=== PATIENT | male | born 1930 | race Caucasian/White ===

== ENCOUNTER 2017-01-07 13:18 | Emergency (ER) | payer MEDICARE, OTHER ==
[2017-01-07 15:00] LABS: BILIRUBIN NEGATIVE (NEGATIVE); BLOOD TRACE-INTACT Ery/uL (NEGATIVE); CLARITY CLEAR (CLEAR); COLOR YELLOW (YELLOW); GLUCOSE (U) NORMAL (NORMAL); KETONE (U) NEGATIVE (NEGATIVE); LEUKOCYTES NEGATIVE Leu/uL (NEGATIVE); NITRITE NEGATIVE (NEGATIVE); PROTEIN NEGATIVE (NEGATIVE); SPECIFIC GRAVITY 1.015 (1.001-1.030); UROBILINOGEN 0.2 mg/dL (0.2-1.0); pH 5.5 (5.0-9.0)
[2017-01-07 15:07] LABS: INR 1.16 (0.9-1.2); PROTHROMBIN TIME 14.4 SECONDS (11.7-14.0)
[2017-01-07 15:08] LABS: PTT 37.4 SECONDS (23.2-31.4)
[2017-01-07 15:13] LABS: ALBUMIN 3.8 g/dL (3.4-4.8); BILIRUBIN - TOTAL 0.7 mg/dL (0.1-1.0); GLOBULIN (CALCULATION) 2.1 g/dL (2.2-4.2); POTASSIUM 3.3 mmol/L (3.5-5.1); TOTAL PROTEIN 5.9 g/dL (6.4-8.3)
[2017-01-07 15:20] LABS: BASOPHIL 3.8 % (0-2); EOSINOPHIL 0.6 % (0-7); HCT 34.9 % (42.0-52.0); HGB 10.9 g/dl (13.2-18.0); LYMPHOCYTE 56.5 % (15-48); MCH 26.5 pg (25.0-31.0); MCHC 31.2 g/dL (32.0-36.0); MCV 84.9 fL (78.0-100.0); MONOCYTE 13.8 % (0-12); NEUTROPHIL 25.3 % (41-80); RBC 4.11 M/uL (4.70-6.00); RDW 16.7 % (11.5-14.0)
[2017-01-07 15:21] LABS: PLT 68 K/uL (150-400)
[2017-01-07 15:23] LABS: URINARY RBC RARE
== END 2017-01-07 18:02 | disposition home or self-care (01) ==
LOC: FER 13:18
PROVIDERS: Emergency Medicine
DX: S00.83XA Contusion of other part of head, initial encounter (principal); C85.90 Non-Hodgkin lymphoma, unspecified, unspecified site; N13.2 Hydronephrosis with renal and ureteral calculous obstruction; B02.9 Zoster without complications; R16.1 Splenomegaly, not elsewhere classified; I10 Essential (primary) hypertension; E78.5 Hyperlipidemia, unspecified; M06.9 Rheumatoid arthritis, unspecified; Z79.82 Long term (current) use of aspirin; Z79.899 Other long term (current) drug therapy; Z87.442 Personal history of urinary calculi; W19.XXXA Unspecified fall, initial encounter
CPT/HCPCS: 36415; 70450; 70486; 80053; 81001; 83690; 84484; 85025; 85610; 85730; 87088; 93005

== ENCOUNTER 2020-12-16 10:05 | Emergency (ER) | payer MEDICARE, OTHER ==
[~2020-12-16 10:05] MED LIST: ALLOPURINOL300 MG PO; ASCORBIC ACID500 MG PO; CEFDINIR300 MG PO; DEXAMETHASONE 2M2 MG PO; LASIX20 MG PO; LOPRESSOR25 MG PO; NORCO 5-325 TA1 EACH PO; TAMSULOSIN HCL0.4 MG PO; ZINC SULFATE220 M1 PO
[2020-12-16 14:15] LABS: BILIRUBIN NEGATIVE (NEGATIVE); BLOOD 1+ Ery/uL (NEGATIVE); CLARITY HAZY (CLEAR); COLOR YELLOW (YELLOW); GLUCOSE (U) NORMAL (NORMAL); LEUKOCYTES 2+ Leu/uL (NEGATIVE); NITRITE NEGATIVE (NEGATIVE); PROTEIN TRACE (LOW) mg/dL (NEGATIVE); SPECIFIC GRAVITY 1.015 (1.001-1.030); UROBILINOGEN 0.2 mg/dL (0.2-1.0); pH 6.5 (5.0-9.0)
[2020-12-16 14:31] LABS: URINARY WBC TNTC
[2020-12-16 14:32] LABS: BACTERIA TRACE
[2020-12-16 15:26] LABS: BASOPHIL 0.5 % (0-2); EOSINOPHIL 1.2 % (0-7); HCT 44.1 % (42.0-52.0); HGB 13.9 g/dl (13.2-18.0); MCH 29.6 pg (25.0-31.0); MCHC 31.5 g/dL (32.0-36.0); MONOCYTE 4.9 % (0-12); MPV 10.8 fL (6.0-9.5); NEUTROPHIL 39.9 % (41-80); NRBC 0; RBC 4.69 M/uL (4.70-6.00); RDW 16.8 % (11.5-14.0); WBC 8.8 K/uL (4.0-10.5)
[2020-12-16 15:30] LABS: PLT 86 K/uL (150-400)
[2020-12-16 15:31] LABS: LYMPHOCYTE 53.3 % (15-48)
[2020-12-16 16:03] LABS: ALBUMIN 3.7 g/dL (3.4-5.0); BILIRUBIN - TOTAL 0.7 mg/dL (0.2-1.0); BUN/CREAT RATIO (CALC) 38.1 RATIO; CREATININE 0.97 mg/dL (0.67-1.17); TOTAL PROTEIN 6.7 g/dL (6.4-8.2)
[2020-12-16] MEDS ORDERED: NORCO 5-325 TA1 EACH PO (16:22)
[2020-12-16] MEDS ORDERED: BACTRIM DS TAB1 EACH PO (16:25)
[2020-12-16] MEDS ORDERED: ZPAK PO (16:25)
== END 2020-12-16 16:55 | disposition home or self-care (01) ==
LOC: FER 10:05
PROVIDERS: Physician Assistant
DX: S39.012A Strain of muscle, fascia and tendon of lower back, initial encounter (principal); N13.6 Pyonephrosis; J18.9 Pneumonia, unspecified organism; M51.36 Other intervertebral disc degeneration, lumbar region; M43.9 Deforming dorsopathy, unspecified; N40.0 Benign prostatic hyperplasia without lower urinary tract symptoms; M10.9 Gout, unspecified; Z79.899 Other long term (current) drug therapy; Z85.72 Personal history of non-Hodgkin lymphomas; Z87.442 Personal history of urinary calculi; X58.XXXA Exposure to other specified factors, initial encounter
CPT/HCPCS: 36415; 71100; 72110; 80053; 81001; 83690; 85025; 87088

== ENCOUNTER 2020-12-24 17:28 | Emergency (ER) | payer MEDICARE, OTHER ==
[~2020-12-24 17:28] MED LIST changes: +BACTRIM DS TAB1 EACH PO; +ZPAK PO
[2020-12-24] MEDS ORDERED: CEPHALEXIN500 M1 PO (19:55)
[2020-12-24] MEDS ORDERED: BACITRACIN15 GM TOP (19:55)
== END 2020-12-24 20:13 | disposition home or self-care (01) ==
LOC: FER 17:28
DX: S01.81XA Laceration without foreign body of other part of head, initial encounter (principal); S01.21XA Laceration without foreign body of nose, initial encounter; S80.212A Abrasion, left knee, initial encounter; G95.9 Disease of spinal cord, unspecified; Z85.820 Personal history of malignant melanoma of skin; Z85.72 Personal history of non-Hodgkin lymphomas; W10.9XXA Fall (on) (from) unspecified stairs and steps, initial encounter; Y92.410 Unspecified street and highway as the place of occurrence of the external cause
CPT/HCPCS: 70450; 70486; 72125; 73560

== ENCOUNTER 2021-08-30 12:56 | Emergency (ER) | payer MEDICARE, OTHER ==
[~2021-08-30 12:56] MED LIST changes: +BACITRACIN15 GM TOP; +CEPHALEXIN500 M1 PO
[2021-08-30 13:45] LABS: BASOPHIL 0.3 % (0-2); EOSINOPHIL 0.3 % (0-7); HCT 35.4 % (42.0-52.0); HGB 11.4 g/dl (13.2-18.0); MCH 29.5 pg (25.0-31.0); MCHC 32.2 g/dL (32.0-36.0); MCV 91.5 fL (78.0-100.0); MONOCYTE 6.2 % (0-12); NEUTROPHIL 54.9 % (41-80); NRBC 0; PLT 103 K/uL (150-400); RBC 3.87 M/uL (4.70-6.00); RDW 17.7 % (11.5-14.0)
[2021-08-30 13:51] LABS: ALBUMIN 3.4 g/dL (3.4-5.0); BILIRUBIN - TOTAL 1.1 mg/dL (0.2-1.0); BUN/CREAT RATIO (CALC) 35.9 RATIO; CREATININE 1.03 mg/dL (0.67-1.17); POTASSIUM 3.9 mmol/L (3.5-5.1); TOTAL PROTEIN 6.4 g/dL (6.4-8.2)
[2021-08-30 14:16] LABS: WBC 6.4 K/uL (4.0-10.5)
[2021-08-30] MEDS ORDERED: SENNA-S 8.6-501 EACH PO (14:57)
== END 2021-08-30 19:16 | disposition home or self-care (01) ==
LOC: FER 12:56
PROVIDERS: Internal Medicine
DX: E86.0 Dehydration (principal); K59.00 Constipation, unspecified
CPT/HCPCS: 36415; 80053; 83690; 85025; J7030

== ENCOUNTER 2021-09-28 18:17 | Emergency (ER) | payer MEDICARE, OTHER ==
[~2021-09-28 18:17] MED LIST changes: +SENNA-S 8.6-501 EACH PO
== END 2021-09-28 20:06 | disposition home or self-care (01) ==
LOC: FER 18:17
DX: S01.01XA Laceration without foreign body of scalp, initial encounter (principal); S09.90XA Unspecified injury of head, initial encounter; I10 Essential (primary) hypertension; Z87.891 Personal history of nicotine dependence; W19.XXXA Unspecified fall, initial encounter; Y92.009 Unspecified place in unspecified non-institutional (private) residence as the place of occurrence of the external cause
CPT/HCPCS: 70450

== ENCOUNTER 2021-11-28 20:08 | Inpatient (IN) | payer MEDICARE, OTHER ==
[2021-11-28 20:59] LABS: BASOPHIL 0.3 % (0-2); EOSINOPHIL 0.9 % (0-7); HCT 35.7 % (42.0-52.0); LYMPHOCYTE 33.4 % (15-48); MCH 31.3 pg (25.0-31.0); MCHC 33.6 g/dL (32.0-36.0); MONOCYTE 4.7 % (0-12); MPV 11.2 fL (6.0-9.5); NRBC 0; PLT 73 K/uL (150-400); RBC 3.84 M/uL (4.70-6.00); RDW 17.1 % (11.5-14.0)
[2021-11-28 21:12] LABS: CREATININE 1.13 mg/dL (0.67-1.17); MAGNESIUM 1.9 mg/dL (1.8-2.4); POTASSIUM 3.8 mmol/L (3.5-5.1)
[2021-11-29 01:34] LABS: CORONAVIRUS 2019 SARS-COV-2 NEGATIVE (NEGATIVE); INFLUENZA A NAA NEGATIVE (NEGATIVE)
[2021-11-29 01:44] LABS: INR 1.01 (0.9-1.2); PROTHROMBIN TIME 12.7 SECONDS (11.8-13.4)
[2021-11-29] MEDS ORDERED: FLOMAX0.4 MG PO (11:53)
[2021-11-29] MEDS ORDERED: TOPROL XL 25MG25 MG PO (11:53)
[2021-11-29] MEDS ORDERED: ALLOPURINOL 30300 MG PO (11:53)
[2021-11-29] MEDS ORDERED: NEURONTIN300 MG PO (11:54)
[2021-11-29] MEDS ORDERED: LASIX20 MG PO (11:54)
[2021-11-29] MEDS ORDERED: OXY-IR 5MG5 MG PO (11:54)
[2021-11-29 14:58] LABS: BILIRUBIN NEGATIVE (NEGATIVE); BLOOD 3+ Ery/uL (NEGATIVE); CLARITY CLEAR (CLEAR); COLOR YELLOW (YELLOW); GLUCOSE (U) NORMAL (NORMAL); LEUKOCYTES TRACE Leu/uL (NEGATIVE); NITRITE NEGATIVE (NEGATIVE); PROTEIN TRACE (LOW) mg/dL (NEGATIVE); UROBILINOGEN 0.2 mg/dL (0.2-1.0)
[2021-11-29 15:10] LABS: URINARY RBC TNTC; URINARY WBC 20-50
[2021-11-29 15:12] LABS: SQUAMOUS EPITHELIAL CELLS RARE
[2021-11-30 06:59] LABS: BASOPHIL 0.1 % (0-2); EOSINOPHIL 0 % (0-7); HCT 27.8 % (42.0-52.0); HGB 9.2 g/dl (13.2-18.0); MCH 31.6 pg (25.0-31.0); MCHC 33.1 g/dL (32.0-36.0); MCV 95.5 fL (78.0-100.0); MONOCYTE 6.6 % (0-12); MPV 11.3 fL (6.0-9.5); NEUTROPHIL 62.8 % (41-80); NRBC 0; PLT 97 K/uL (150-400); RBC 2.91 M/uL (4.70-6.00); RDW 17.4 % (11.5-14.0)
[2021-11-30 07:08] LABS: BUN/CREAT RATIO (CALC) 28.9 RATIO; CREATININE 1.49 mg/dL (0.67-1.17); POTASSIUM 4.8 mmol/L (3.5-5.1)
[2021-11-30 07:19] LABS: WBC 14.2 K/uL (4.0-10.5)
[2021-11-30 07:20] LABS: LYMPHOCYTE 29.5 % (15-48)
--- NOTE | 2021-11-30 10:43 | NUR ---
MET WITH PT AND DAUGHTER. THEY WANT TO GO TO [facility] IN [place]. PT. DAUGHTER IS THE [employer]TH[employer] LIAS[employer] AT THE FACILITY. CALLED CHERYLE IN ADMISSIONS AT [facility] - [phone]. SHE ADVISED TO FAX INFO TO [phone].
--- NOTE | 2021-12-02 02:29 | NUR ---
PT BLADDER SCANNED WITH RESULT OF 157ML. [place] CATHETER REMOVED 12/01 AROUND 10AM PT NOT VOIDING MUCH SO FAR THIS SHIFT. GOT ORDER TO RESTART PT [facility] WILL CONTINUE TO MONITOR
[2021-12-02 06:30] LABS: BASOPHIL 0.1 % (0-2); EOSINOPHIL 0.1 % (0-7); HCT 19.4 % (42.0-52.0); LYMPHOCYTE 35.9 % (15-48); MCH 31.5 pg (25.0-31.0); MCV 95.6 fL (78.0-100.0); MONOCYTE 5.3 % (0-12); MPV 11.2 fL (6.0-9.5); NEUTROPHIL 57.3 % (41-80); NRBC 0.3; PLT 94 K/uL (150-400); RBC 2.03 M/uL (4.70-6.00); RDW 17.5 % (11.5-14.0)
[2021-12-02 06:49] LABS: HGB 6.4 g/dl (13.2-18.0)
[2021-12-02 09:18] LABS: ALBUMIN 2.5 g/dL (3.4-5.0); BILIRUBIN - TOTAL 0.9 mg/dL (0.2-1.0); CREATININE 1.69 mg/dL (0.67-1.17); GLOBULIN (CALCULATION) 2.7 g/dL; POTASSIUM 4.2 mmol/L (3.5-5.1); TOTAL PROTEIN 5.2 g/dL (6.4-8.2)
[2021-12-03 06:39] LABS: BASOPHIL 0.1 % (0-2); EOSINOPHIL 0.3 % (0-7); HCT 22.2 % (42.0-52.0); HGB 7.2 g/dl (13.2-18.0); LYMPHOCYTE 40.6 % (15-48); MCH 30.9 pg (25.0-31.0); MCHC 32.4 g/dL (32.0-36.0); MCV 95.3 fL (78.0-100.0); MONOCYTE 6.3 % (0-12); MPV 10.4 fL (6.0-9.5); NEUTROPHIL 51.6 % (41-80); NRBC 0.4; RBC 2.33 M/uL (4.70-6.00); RDW 17.9 % (11.5-14.0)
[2021-12-03 06:53] LABS: PLT 101 K/uL (150-400)
[2021-12-03 07:24] LABS: BUN/CREAT RATIO (CALC) 42.2 RATIO; CREATININE 1.09 mg/dL (0.67-1.17); POTASSIUM 3.9 mmol/L (3.5-5.1)
[2021-12-04 05:51] LABS: BASOPHIL 0.2 % (0-2); EOSINOPHIL 0.5 % (0-7); HGB 6.6 g/dl (13.2-18.0); LYMPHOCYTE 48.2 % (15-48); MCH 30.6 pg (25.0-31.0); MCHC 31.4 g/dL (32.0-36.0); MCV 97.2 fL (78.0-100.0); MONOCYTE 4.8 % (0-12); MPV 10.7 fL (6.0-9.5); NEUTROPHIL 45.4 % (41-80); NRBC 0; RBC 2.16 M/uL (4.70-6.00); RDW 17.9 % (11.5-14.0); WBC 5.6 K/uL (4.0-10.5)
[2021-12-04 06:05] LABS: PLT 76 K/uL (150-400)
[2021-12-04 06:17] LABS: CREATININE 0.84 mg/dL (0.67-1.17)
--- NOTE | 2021-12-04 09:49 | NUR ---
PT NO LONGER WANTS [facility] THEY HAVE A NO VISITOR POLICY. PER HER REQUEST REFERRALS WERE SENT TO [facility], [facility], [facility] - [facility] AND [facility]. AWAITING AN ANSWER.
[2021-12-05 06:10] LABS: BASOPHIL 0.2 % (0-2); EOSINOPHIL 0.7 % (0-7); HGB 7.7 g/dl (13.2-18.0); LYMPHOCYTE 41.3 % (15-48); MCHC 32.1 g/dL (32.0-36.0); MCV 96.8 fL (78.0-100.0); MONOCYTE 6.4 % (0-12); MPV 10.8 fL (6.0-9.5); NEUTROPHIL 50.5 % (41-80); NRBC 0; RBC 2.48 M/uL (4.70-6.00); RDW 19.2 % (11.5-14.0); WBC 5.8 K/uL (4.0-10.5)
[2021-12-05 06:14] LABS: PLT 85 K/uL (150-400)
[2021-12-05 06:33] LABS: CREATININE 0.78 mg/dL (0.67-1.17)
[2021-12-06 06:08] LABS: BASOPHIL 0.2 % (0-2); HCT 23.4 % (42.0-52.0); HGB 7.5 g/dl (13.2-18.0); LYMPHOCYTE 42.2 % (15-48); MCH 31.4 pg (25.0-31.0); MCHC 32.1 g/dL (32.0-36.0); MCV 97.9 fL (78.0-100.0); MONOCYTE 6.5 % (0-12); MPV 10.8 fL (6.0-9.5); NEUTROPHIL 49.3 % (41-80); NRBC 0; RBC 2.39 M/uL (4.70-6.00); RDW 19.6 % (11.5-14.0)
[2021-12-06 06:09] LABS: PLT 87 K/uL (150-400); WBC 5.2 K/uL (4.0-10.5)
[2021-12-06 06:24] LABS: BUN/CREAT RATIO (CALC) 32.6 RATIO; CREATININE 0.86 mg/dL (0.67-1.17); POTASSIUM 3.7 mmol/L (3.5-5.1)
--- NOTE | 2021-12-06 09:34 | NUR ---
TC FROM REYNA AT [facility]. THEY CAN ACCEPT PT THIS DATE. ADVISED HER THAT I WOULD SPEAK WITH DAUGHTER AND CONFIRM THEIR CHOICE OF [facility]. SPOKE WITH JAMI, DAUGHTER AND PT. THEY ARE IN AGREEMENT TO GO TO [facility] THIS DATE. SPOKE WITH DR. BOLAND, PT IS MEDICALLY READY FOR TRANSFER. HE WILL ORDER RAPID COVID. SPOKE WITH NURSE, ZORA. ADVISED [facility] WOULD LIKE THE IRON RUN BEFORE PT. LEAVES. ZORA STATED THAT SHE IS WAITING ON THE IRON AND WILL GIVE IT BEFORE PT. D/C. TC TO REYNA AT [facility]. SHE WOULD LIKE AN UPDATED MED LIST, THERAPY NOTES AND A CD OF PT CT OF THE HEAD. ZORA ADVISED TO CONTACT [facility] FOR CD. SPOKE WITH ISMA IN [facility] AND HE BROUGHT ME A COPY OF THE CD. GAVE THE CD TO ZORA. SHE ADVISED THAT THE NURSE AT [facility] WILL CONTACT PATIENTS NURSE ZORA AT [facility] FOR REPORT. PHONE NUMBER FOR ZORA GIVEN TO [facility]. D/C FAX NUMBER IS [phone]
[2021-12-06] MEDS ORDERED: NEURONTIN300 MG PO (11:31)
[2021-12-06] MEDS ORDERED: MIRALAX17 GM PO (11:31)
[2021-12-06] MEDS ORDERED: OXY-IR 5MG5 MG PO (11:31)
[2021-12-06] MEDS ORDERED: FERRLECIT62.5 MG/5 IV (13:21)
[2021-12-06] MEDS ORDERED: ASPIRIN EC81 MG PO (13:21)
== END 2021-12-06 16:15 | DRG 481 ==
LOC: FER 20:08 → FMS 11-29 08:06
PROVIDERS: Emergency Medicine; Internal Medicine; Orthopaedic Surgery; ADMIT Allergy & Immunology Allergy
PROC: 0QS606Z Reposition Right Upper Femur with Intramedullary Internal Fixation Device, Open Approach (ICD-10-PCS; principal; 2021-11-29 16:00)
PROC: 30233N1 Transfusion of Nonautologous Red Blood Cells into Peripheral Vein, Percutaneous Approach (ICD-10-PCS; 2021-12-02)
PROC: 30233N1 Transfusion of Nonautologous Red Blood Cells into Peripheral Vein, Percutaneous Approach (ICD-10-PCS; 2021-12-04)
DX: S72.141A Displaced intertrochanteric fracture of right femur, initial encounter for closed fracture (principal); D62 Acute posthemorrhagic anemia; N17.9 Acute kidney failure, unspecified; C79.51 Secondary malignant neoplasm of bone; C85.80 Other specified types of non-Hodgkin lymphoma, unspecified site; I95.9 Hypotension, unspecified; Z20.822 Contact with and (suspected) exposure to COVID-19; S00.03XA Contusion of scalp, initial encounter; C08.0 Malignant neoplasm of submandibular gland; E86.9 Volume depletion, unspecified; I10 Essential (primary) hypertension; N40.0 Benign prostatic hyperplasia without lower urinary tract symptoms; R82.90 Unspecified abnormal findings in urine; M10.9 Gout, unspecified; I08.0 Rheumatic disorders of both mitral and aortic valves; I27.20 Pulmonary hypertension, unspecified; W01.0XXA Fall on same level from slipping, tripping and stumbling without subsequent striking against object, initial encounter; Z85.46 Personal history of malignant neoplasm of prostate; Z98.890 Other specified postprocedural states; Z85.820 Personal history of malignant melanoma of skin; Z79.899 Other long term (current) drug therapy; Z87.891 Personal history of nicotine dependence; Z98.41 Cataract extraction status, right eye; Z98.42 Cataract extraction status, left eye; Z85.828 Personal history of other malignant neoplasm of skin; Z87.442 Personal history of urinary calculi
CPT/HCPCS: 36415; 36430; 70450; 70486; 71250; 72192; 73130; 73501; 76000; 80048; 80053; 81001; 83036; 83735; 84145; 84484; 85025; 85610; 86850; 86900; 86901; 86922; 87088; 90471; 90715; 93005; 94010; 97110; 97116; 97162; 97166; 97530; 97530-GP; 97535; C1713; J0697; J1100; J1170; J2001; J2250; J2370; J2405; J2916; J3010; J7030; J7120; P9016; U0002

== ENCOUNTER 2022-02-06 14:25 | Emergency (ER) | payer MEDICARE, OTHER ==
[~2022-02-06 14:25] MED LIST changes: +ALLOPURINOL 30300 MG PO; +ASPIRIN EC81 MG PO; +CIPRO500 MG PO; +FERRLECIT62.5 MG/5 IV; +FLOMAX0.4 MG PO; +MIRALAX17 GM PO; +NEURONTIN300 MG PO; +OXY-IR 5MG5 MG PO; +TOPROL XL 25MG25 MG PO
[2022-02-06 16:36] LABS: BASOPHIL 0.5 % (0-2); EOSINOPHIL 1.2 % (0-7); HCT 39.5 % (42.0-52.0); HGB 12.4 g/dl (13.2-18.0); LYMPHOCYTE 24.5 % (15-48); MCH 30.9 pg (25.0-31.0); MCHC 31.4 g/dL (32.0-36.0); MCV 98.5 fL (78.0-100.0); MPV 10.8 fL (6.0-9.5); NEUTROPHIL 68.9 % (41-80); NRBC 0; RBC 4.01 M/uL (4.70-6.00); RDW 15.5 % (11.5-14.0); WBC 6.5 K/uL (4.0-10.5)
[2022-02-06 16:39] LABS: ALBUMIN 2.8 g/dL (3.4-5.0); BILIRUBIN - TOTAL 0.7 mg/dL (0.2-1.0); BUN/CREAT RATIO (CALC) 32.5 RATIO; CREATININE 0.83 mg/dL (0.67-1.17); INR 1.12 (0.9-1.2); POTASSIUM 4.3 mmol/L (3.5-5.1); PROTHROMBIN TIME 13.8 SECONDS (11.8-13.4); TOTAL PROTEIN 5.8 g/dL (6.4-8.2)
[2022-02-06 16:40] LABS: PTT 31.5 SECONDS (24.4-34.7)
[2022-02-06 16:41] LABS: PLT 91 K/uL (150-400)
== END 2022-02-06 18:10 | disposition other institution (70) ==
LOC: FER 14:25
PROVIDERS: Emergency Medicine
DX: S01.03XA Puncture wound without foreign body of scalp, initial encounter (principal); R22.1 Localized swelling, mass and lump, neck; W18.30XA Fall on same level, unspecified, initial encounter; Y92.099 Unspecified place in other non-institutional residence as the place of occurrence of the external cause
CPT/HCPCS: 36415; 70450; 71045; 72125; 80053; 84484; 85025; 85610; 85730; J1170; J2405

== ENCOUNTER 2022-02-10 21:46 | Inpatient (IN) | payer MEDICARE, OTHER ==
[~2022-02-10] VITALS: Ht 167.6 cm; Wt 52.8 kg
[2022-02-10 22:22] LABS: BASOPHIL 0.2 % (0-2); EOSINOPHIL 0.4 % (0-7); HCT 33.6 % (42.0-52.0); HGB 10.7 g/dl (13.2-18.0); LYMPHOCYTE 35.5 % (15-48); MCH 31.2 pg (25.0-31.0); MCHC 31.8 g/dL (32.0-36.0); MPV 10.6 fL (6.0-9.5); NRBC 0; RBC 3.43 M/uL (4.70-6.00); RDW 15.6 % (11.5-14.0); WBC 5.6 K/uL (4.0-10.5)
[2022-02-10 22:26] LABS: NEUTROPHIL 58.7 % (41-80)
[2022-02-10 22:41] LABS: ALBUMIN 2.6 g/dL (3.4-5.0); BILIRUBIN - TOTAL 0.8 mg/dL (0.2-1.0); BUN/CREAT RATIO (CALC) 28.4 RATIO; CREATININE 0.74 mg/dL (0.67-1.17); POTASSIUM 4.1 mmol/L (3.5-5.1); TOTAL PROTEIN 5.6 g/dL (6.4-8.2)
[2022-02-10 22:43] LABS: LACTIC ACID 0.8 mmol/L (0.4-1.9)
[2022-02-10 22:44] LABS: PLT 89 K/uL (150-400)
[2022-02-10 22:56] LABS: BILIRUBIN NEGATIVE (NEGATIVE); BLOOD 3+ Ery/uL (NEGATIVE); CLARITY CLEAR (CLEAR); COLOR YELLOW (YELLOW); GLUCOSE (U) NORMAL (NORMAL); LEUKOCYTES 2+ Leu/uL (NEGATIVE); NITRITE NEGATIVE (NEGATIVE); PROTEIN TRACE (LOW) mg/dL (NEGATIVE); SPECIFIC GRAVITY 1.025 (1.001-1.030); UROBILINOGEN 0.2 mg/dL (0.2-1.0)
[2022-02-10 23:05] LABS: AMORPHOUS URATES CRYSTALS MODERATE; BACTERIA 3+; MUCOUS MODERATE; URINARY WBC 20-50; YEAST PRESENT
[2022-02-11] MEDS ORDERED: MILK OF MA400 MG/5 M PO (03:53)
[2022-02-11] MEDS ORDERED: SENNA8.6 MG PO (03:54)
[2022-02-11] MEDS ORDERED: TRAMADOL HCL50 MG PO (03:59)
[2022-02-11] MEDS ORDERED: ACETAMINOPHEN325 MG PO (04:00)
[2022-02-11] MEDS ORDERED: CERTAVITE SR-A1 EACH PO (04:01)
[2022-02-11] MEDS ORDERED: TRIPLE ANTIBIO1 EACH EXT (04:05)
[2022-02-11] MEDS ORDERED: LAXATIVE SUPPOS10 MG PR (04:11)
[2022-02-11] MEDS ORDERED: COMBIVENT RESPIM4 GM INH (04:13)
[2022-02-11] MEDS ORDERED: NEURONTIN300 MG PO (04:14)
[2022-02-11] MEDS ORDERED: ULTRAM50 MG PO (04:16)
== END 2022-02-16 09:09 | disposition expired | DRG 85 ==
LOC: FER 21:46 → FMS 02-11 01:04
PROVIDERS: Emergency Medicine; ADMIT Internal Medicine
PROC: 0T9B70Z Drainage of Bladder with Drainage Device, Via Natural or Artificial Opening (ICD-10-PCS; principal; 2022-02-14)
DX: S06.5X0A Traumatic subdural hemorrhage without loss of consciousness, initial encounter (principal); I26.99 Other pulmonary embolism without acute cor pulmonale; C79.51 Secondary malignant neoplasm of bone; B37.49 Other urogenital candidiasis; C83.10 Mantle cell lymphoma, unspecified site; N13.6 Pyonephrosis; Z66 Do not resuscitate; Z51.5 Encounter for palliative care; Z20.822 Contact with and (suspected) exposure to COVID-19; L89.322 Pressure ulcer of left buttock, stage 2; L89.312 Pressure ulcer of right buttock, stage 2; L89.152 Pressure ulcer of sacral region, stage 2; R09.02 Hypoxemia; I10 Essential (primary) hypertension; G89.3 Neoplasm related pain (acute) (chronic); D50.9 Iron deficiency anemia, unspecified; M10.9 Gout, unspecified; J43.9 Emphysema, unspecified; I27.20 Pulmonary hypertension, unspecified; N40.1 Benign prostatic hyperplasia with lower urinary tract symptoms; R33.8 Other retention of urine; W19.XXXA Unspecified fall, initial encounter; Z98.890 Other specified postprocedural states; Z87.891 Personal history of nicotine dependence; Z79.899 Other long term (current) drug therapy; Z79.82 Long term (current) use of aspirin; Z85.820 Personal history of malignant melanoma of skin; Z98.41 Cataract extraction status, right eye; Z98.42 Cataract extraction status, left eye; Z85.46 Personal history of malignant neoplasm of prostate
CPT/HCPCS: 36415; 70450; 71045; 71275; 80053; 81001; 83605; 84484; 85025; 85379; 87040; 87076; 87088; 93005; 94640; G0378; J0696; J1170; J2060; J2270; J7050; Q9967; U0002